=== PATIENT | female | born 1950 | race Caucasian/White ===

== ENCOUNTER 2019-07-29 17:45 | Inpatient (IN) ==
[2019-07-29 18:39] LABS: BASO# 0.02 X1000 (0.0-0.2); BASO% 0.2 % (0.0-0.8); EOS# 0.02 X1000 (0.0-0.7); EOS% 0.2 % (0.0-10.0); HEMOGLOBIN 14.3 g/dL (12.0-16.0); IMM GRAN# 0.04 X1000 (0.0-0.04); IMM GRAN% 0.4 % (0.0-0.5); LYMPH# 0.56 X1000 (1.2-3.4); LYMPH% 5.8 % (20.5-51.1); MCH 28.3 PG (27-31); MCHC 31.8 g/dL (33-37); MCV 89.1 FL (81-99); MONO# 0.72 X1000 (0.11-0.59); MONO% 7.4 % (1.7-9.3); MPV 10.6 FL (7.4-10.4); NEUT# 8.32 X1000 (1.4-6.5); PLT 215 X1000 (130-400); RBC 5.05 XMIL (4.2-5.4); WBC 9.68 X1000 (4.8-10.8)
[2019-07-29 18:45] LABS: BLOOD TYPE ARTERIAL; HCO3-(ACT) 23.9 mmoll (20.0-26.0); METHB 1.3 % (0.0-1.5); O2(CT) 19.1 mL/dL (15.0-23.0); O2HB 90.4 % (95.0-99.0); PCO2(98.6) 38 mmHg (35-45); PO2(98.6) 56 mmHg (60-100); SAMPLE BLOOD; SAO2 93.1 % (95.0-100.0); THB 15.1 g/dL (11.5-17.4)
[2019-07-29 18:49] LABS: MODALITY ROOM AIR
[2019-07-29 18:50] LABS: INR 1.05; PROTIME 14.2 Seconds (11.0-16.0)
[2019-07-29 18:50] LABS: ALLEN TEST YES
[2019-07-29 18:51] LABS: PTT 27.5 Seconds (22.3-41.8)
--- NOTE | 2019-07-29 18:52 | PROVIDER DOCUMENTATION ---
This chart was entered by Theresa Healy Scribe, acting as scribe for Eric Fallon MD. HPI-General Adult - General Chief Complaint: Diarrhea Stated Complaint: flu like sxs Time Seen by Provider: 07/29/19 18:27 Source: patient, RN/MD Allergies/Adverse Reactions: Patient Allergies Allergy/AdvReac Type Severity Reaction Status Date / Time Sulfa (Sulfonamide AdvReac RASH Verified 02/26/15 08:58 Antibiotics) Home Medications: Home Medication List Medication Instructions Recorded Confirmed Last Taken Type Hydrocodone/Acetaminophen [[place] 1 each PO Q4-6H PRN PRN #20 tablet 02/26/15 Unknown Rx 5-325 Tablet] - History of Present Illness -Gen Adult Nature of Presenting Problems: 69 yowf 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 pt sts she became dizzy and weak and fell backward in bathroom and laid flat on floor. rn sts on pt arrival, pt defecated on self and had to be cleaned up. pt son dx w/flu a on thursday and pt sts she began having flu symptoms today including fever and cough. pt c/o low back pain. hx of back sx, arthritis. rx lyrica and percocet. pt had flu shot. denies loc or head injury. Location of Pain/Injury: reports: back Pain Radiation: reports: no radiation Severity: reports: mild Onset/Duration: reports: just prior to arrival Timing: reports: still present Context/Activities at Onset: reports: light activity Modifying Factors: improves with: nothing Associated Symptoms: reports: back/neck pain, cough, diarrhea, fever/chills. denies: syncope Review of Systems - Adult - REVIEW OF SYSTEMS - ADULT Constitutional: reports: see HPI, fever. denies: fatique, night sweats Eyes: reports: no symptoms reported Ears, Nose, Mouth & Throat: reports: no symptoms reported Cardiovascular: reports: no symptoms reported Respiratory: reports: see HPI, cough. denies: dyspnea on exertion, excessive sputum production, hemoptysis Gastrointestinal: reports: see HPI, diarrhea. denies: difficulty swallowing, frequent heartburn, rectal bleeding, vomiting Genitourinary: reports: no symptoms reported Musculoskeletal: reports: see HPI, back pain, muscle weakness. denies: joint pain, joint swelling, muscle aches Integumentary: reports: no symptoms reported Neurological: reports: see HPI, dizziness/vertigo, loss of balance. denies: numbness, syncope, tremors Psychiatric: reports: no symptoms reported Endocrine: reports: no symptoms reported Hematologic/Lymphatic: reports: no symptoms reported Allergic/Immunologic: reports: no symptoms reported All Other Systems: Reviewed and Negative Past History - Adult - PAST MEDICAL HISTORY-ADULT Review of Records: reports: Nursing Assessment Review, Medications Reviewed, Social history reviewed & non-contributory. Major Childhood Illnesses: reports: denies history Cardiovascular: reports: HTN Respiratory: reports: denies history Gastrointestinal: reports: denies history Obstetrical/Gynecological: reports: denies history Genitourinary: reports: denies history Musculoskeletal: reports: denies history Neurological: reports: denies history Psychiatric: reports: denies history Endocrine/Immune: reports: denies history Other Conditions: reports: denies history - PRIOR SURGERIES/PROCEDURES Surgical/Procedure History: reports: BTL, breast, back/neck - IMMUNIZATION STATUS Childhood Immunizations: See Nurse Assessment Flu Vaccine: See Nurse Assessment - FAMILY HISTORY Family History: reviewed, not pertinent - SOCIAL HISTORY Smoking: non-smoker Substance Use: none/never Physical Exam-General - PHYSICAL EXAM-ADULT Initial Vital Signs Reviewed: Yes - CONSTITUTIONAL General Appearance: alert, no apparent distress, obese. negative: lethargic, slow to respond, obtunded - EYES Eyes: PERRL/EOMI - HEAD, EARS, NOSE, MOUTH & THROAT HENMT: normocephalic/atraumatic, moist mucous membranes - NECK Neck: non-tender, full range of motion, supple, normal inspection - RESPIRATORY Respiratory: chest non-tender, lungs clear, normal breath sounds, no pleuratic chest pain, no respiratory distress, no accessory muscle use. negative: respiratory distress, decreased breath sounds, accessory muscle use, wheezing - CARDIOVASCULAR Cardiovascular: normal peripheral pulses, tachycardia. negative: regular rate, rhythm, extra beats, friction rub, irregularly irregular - GASTROINTESTINAL (ABDOMEN) Abdominal Exam: normal bowel sounds, non tender, soft, no organomegaly, no pulsatile mass. negative: abnormal bowel sounds, rebound, tenderness - MUSCULOSKELETAL Back Exam: other (lumbar pain on palp). negative: normal inspection, decreased range of motion Extremity: normal range of motion, no pedal edema, no calf tenderness, normal capillary refill, pelvis stable, tenderness (on palp lateral rt hip). negative: non-tender, normal inspection, abnormal NV exam, deformity, pulse deficit, slow capillary refill, swelling Peripheral Pulses: dorsalis-pedis (R): 2+, dorsalis-pedis (L): 2+ - SKIN Integumentary: normal color, normal turgor, warm/dry - NEUROLOGIC Neurologic: supervisor pumping II-XII nml as tested, grossly normal, no motor/sensory deficits - PSYCHIATRIC Psych/Mental Status: normal mood/affect, normal thought content, normal thought process, oriented x 3 Progress - PLAN OF CARE/RESULTS Progress/Plan/Lab Results: Vital Signs - 8 hr 07/29/19 18:01 Temperature 103.0 F H Pulse Rate 115 H Respiratory Rate 20 Blood Pressure 162/86 O2 Sat by Pulse Oximetry 90 L Orders Category Date Time Status Cardiac Monitoring NOW Care 07/29/19 18:06 Active IV Insertion NOW Care 07/29/19 18:06 Completed NEWS Score >or=5:Order NEWS Bundle S.O. NOW Care 07/29/19 18:05 Active Notify Provider of NEWS Score NOW Care 07/29/19 18:06 Active CHEST-1 VIEW [RAD] Stat Exams 07/29/19 18:06 Ordered ABG [RESP] Routine Lab 07/29/19 18:14 Ordered BLOOD CULTURE [BLDCUL] Stat Lab 07/29/19 18:06 Uncollected CBC WITH DIFF [HEME] Stat Lab 07/29/19 18:06 Ordered CK PROFILE [SP CHEM] Stat Lab 07/29/19 18:06 Ordered COMPREHENSIVE METABOLIC PANEL [CHEM] Stat Lab 07/29/19 18:06 Uncollected Flu [INFLUENZA SCREEN PL] Stat Lab 07/29/19 18:07 Uncollected PROTIME WITH INR [COAG] Stat Lab 07/29/19 18:06 Uncollected PTT [COAG] Stat Lab 07/29/19 18:06 Uncollected TROPONIN T HIGH SENSITIVITY Stat Lab 07/29/19 18:06 Uncollected URINALYSIS W/POSS RFLX CULT [URINALYSIS] Stat Lab 07/29/19 18:06 Uncollected O2 Per Protocol Stat Oth 07/29/19 18:06 Active Result Diagrams: 07/29/19 18:28 07/29/19 18:28 - CONSULTS/PCP/HOSPITALIST Notification #1 *Consult/PCP/Hospitalist*: Dr. Cummins Time Discussed: 18:55 Consult Disposition: Admit - CHANGE OF SHIFT REPORT (ED Provider) 1 Report Given and Care Transferred to:: Dr. Mosquera Time of Transfer: 19:00 Items Pending: XRAY Results Departure - Departure Date of Disposition Decision: 07/29/19 Time of Disposition Decision: 19:08 DIAGNOSIS: Pneumonia Disposition: ADMITTED INPATIENT 09 Certified Medical Emergency: Emergent Condition: Stable - Critical Care Note This patient required my direct & personal management of CC.: No Attestation - Physician/ HAYDE Attestation Patient care was provided by Advanced Practice Provider:: No The physician spent face to face time with patient:: Yes Advanced Practice Provider documentation review:: Supervising physician onsite and consulted in the evaluation and care of this patient. The physician did have a face to face encounter with the patient. This chart was documented by the indicated scribe, (Theresa Healy, [email or web address]) and accurately reflects the services I performed and decisions made by me, Eric Fallon MD, as attested by the provider's signature.
[2019-07-29 18:53] LABS: INFLUENZA A NEGATIVE (NEGATIVE); INFLUENZA B NEGATIVE (NEGATIVE)
[2019-07-29 18:54] LABS: AGAP 14; ALBUMIN 4.2 g/dL (3.5-5.0); ALKALINE PHOSPHATASE 133 U/L (32-104); BUN 13 mg/dL (8-22); CALCIUM 8.8 mg/dL (8.8-10.2); CHLORIDE 102 mmol/L (98-107); CK PROFILE 137 U/L (24-173); COSMO 279; CREATININE 0.9 mg/dL (0.5-0.9); ESTIMATED GFR > 60; GLUCOSE 114 mg/dL (70-104); GOT 30 U/L (10-30); GPT 21 U/L (10-36); POTASSIUM 3.9 mmol/L (3.5-5.1); SODIUM 139 mmol/L (136-145); TCO2 23 mmol/L (25-35); TOTAL PROTEIN 6.7 g/dL (6.3-8.3)
[2019-07-29] MEDS ORDERED: ZOFRAN ODT PO ONE (18:55)
[2019-07-29] MEDS ORDERED: ROCEPHIN 1 GM in NS 50 ML IV ONE (19:00)
--- NOTE | 2019-07-29 19:05 | Diag Imaging Result Doc PS360 ---
EXAM: CHEST-1 VIEW 07/29/2019 HISTORY: sepsis TECHNIQUE: Erect AP portable at 1847 COMMENT: There is opacification of the left lateral costophrenic angle. There are no previous studies. The heart size and pulmonary vascularity are within normal limits. IMPRESSION: Left lower lobe atelectasis versus pneumonia. Electronically signed by Preet Saldivar 07/29/2019 7:03 PM
[2019-07-29 19:10] LABS: BANDS 3 % (0-1); LYMPHS 7 % (21-51); MONO 4 % (1-9); SEGS 86 % (42-75)
[2019-07-29 19:11] LABS: STOMATOCYTES OCCASIONAL
[2019-07-29 19:39] LABS: URINE SOURCE CLEAN CATCH
[2019-07-29 19:43] LABS: BILIRUBIN URINE NEGATIVE (NEGATIVE); BLOOD URINE SMALL (NEGATIVE); COLOR YELLOW; GLUCOSE URINE NEGATIVE (NEGATIVE); KETONE URINE NEGATIVE (NEGATIVE); LEUKOCYTES URINE SMALL (NEGATIVE); NITRITE URINE NEGATIVE (NEGATIVE); PROTEIN URINE 50 mg/dL (NEGATIVE); SP GRAVITY URINE 1.025; TURBIDITY URINE CLEAR (CLEAR); UROBILINOGEN URINE NORMAL (NORMAL)
[2019-07-29 20:31] LABS: URINE WBC 20-40 /HPF (<10)
[2019-07-29 20:32] LABS: UR EPITHELIAL CELLS >10 /HPF (<10); URINE BACTERIA 2+ /HPF; URINE CASTS NONE SEEN; URINE CRYSTALS NONE SEEN; URINE SMALL ROUND CELLS NONE SEEN; URINE YEAST NONE SEEN
[2019-07-29 21:24] LABS: INR 1.01; PROTIME 13.8 Seconds (11.0-16.0)
[2019-07-29 21:26] LABS: BASO# 0.02 X1000 (0.0-0.2); BASO% 0.2 % (0.0-0.8); EOS# 0.01 X1000 (0.0-0.7); EOS% 0.1 % (0.0-10.0); HEMATOCRIT 43.6 % (37.0-47.0); HEMOGLOBIN 13.8 g/dL (12.0-16.0); IMM GRAN# 0.06 X1000 (0.0-0.04); IMM GRAN% 0.5 % (0.0-0.5); LYMPH# 0.89 X1000 (1.2-3.4); LYMPH% 6.9 % (20.5-51.1); MCH 28.2 PG (27-31); MCHC 31.7 g/dL (33-37); MONO# 1.39 X1000 (0.11-0.59); MONO% 10.9 % (1.7-9.3); MPV 10.7 FL (7.4-10.4); NEUT# 10.44 X1000 (1.4-6.5); NEUT% 81.4 % (42.2-75.2); PLT 207 X1000 (130-400); WBC 12.81 X1000 (4.8-10.8)
[2019-07-29 21:52] LABS: HYPOCHROM OCCASIONAL; LYMPHS 10 % (21-51); MONO 6 % (1-9); SEGS 84 % (42-75)
[2019-07-29 21:56] LABS: PTT < 20.0 Seconds (22.3-41.8)
[2019-07-29 22:15] LABS: AGAP 12; ALBUMIN 3.8 g/dL (3.5-5.0); ALKALINE PHOSPHATASE 123 U/L (32-104); BUN 12 mg/dL (8-22); CALCIUM 8.8 mg/dL (8.8-10.2); CHLORIDE 102 mmol/L (98-107); COSMO 277; CREATININE 0.8 mg/dL (0.5-0.9); ESTIMATED GFR > 60; GLUCOSE 126 mg/dL (70-104); GOT 31 U/L (10-30); GPT 20 U/L (10-36); POTASSIUM 3.9 mmol/L (3.5-5.1); SODIUM 138 mmol/L (136-145); TCO2 24 mmol/L (25-35); TOTAL PROTEIN 6.2 g/dL (6.3-8.3)
[2019-07-29 22:19] LABS: CK PROFILE 429 U/L (24-173)
[2019-07-29 22:41] LABS: CK INDEX 1.3 (0.0-2.5); CK-MB 5.74 ng/mL (0.0-5.0)
[2019-07-29] MEDS ORDERED: PERCOCET-10 PO PRN (22:55)
[2019-07-29] MEDS: PERCOCET-10 PO PRN (23:33)
[2019-07-30] MEDS: PERCOCET-10 PO PRN ×2 (08:25→19:05)
[2019-07-30 11:32] LABS: HEMATOCRIT 44.4 % (37.0-47.0); HEMOGLOBIN 13.9 g/dL (12.0-16.0); MCH 27.9 PG (27-31); MCHC 31.3 g/dL (33-37); MCV 89.2 FL (81-99); MPV 10.4 FL (7.4-10.4); RBC 4.98 XMIL (4.2-5.4); RDW 13.3 % (11.5-14.5); WBC 12.35 X1000 (4.8-10.8)
[2019-07-30] MEDS: ZITHROMAX PO SCH (11:39)
[2019-07-30 11:52] LABS: CALCIUM 8.9 mg/dL (8.8-10.2); POTASSIUM 3.9 mmol/L (3.5-5.1)
--- NOTE | 2019-07-30 13:13 | HISTORY AND PHYSICAL ---
CHIEF COMPLAINT: Generalized weakness and fall. HISTORY OF PRESENT ILLNESS: This is a 69-year-old female with a history of chronic back pain on chronic opiates, who presents to the emergency room after having an onset of dizziness, weakness, and falling backwards in the bathroom floor. She did defecate on herself during this time, although she had gone to the bathroom to have a bowel movement. She denied any loss of consciousness. She did state that through the day she has developed fever and cough. On arrival to the emergency room, she had a temperature of 103 degrees with O2 saturations at 90% on room air. Of note, her son was diagnosed with the flu and is currently on Tamiflu. The patient states that she did have a flu shot. PAST MEDICAL HISTORY: Chronic pain on chronic opiates, hypertension. PAST SURGICAL HISTORY: Breast biopsy, tubal ligation, back surgery. SOCIAL HISTORY: She denies alcohol, tobacco, or illicit drug use. ALLERGIES: Sulfa, which causes a rash. HOME MEDICATIONS: Meloxicam, oxycodone, and Lyrica. REVIEW OF SYSTEMS: Discussed with the patient with pertinent positives stated in the HPI. She denied any syncope, chest pain or palpitations, any shortness of breath, PND, orthopnea, any nausea, vomiting, constipation, any black or bloody vomitus or stools, hematuria, dysuria frequency, urgency. PHYSICAL EXAMINATION: GENERAL: This is a 69-year-old female, who is lying on the bed on the Med/Surg floor in no distress. VITAL SIGNS: Blood pressure is 152/62 with heart rate of 70, respirations are 20, temperature is 97.7 degrees oral with O2 saturations 96% on 2 L nasal cannula and 94% on room air. HEENT: Head is normocephalic, atraumatic. Mucous membranes are moist. Pupils are equal, round, react to light. EOMs are intact. NECK: Supple with trachea midline. CARDIOVASCULAR: Regular rate and rhythm. S1 and S2 appreciated. She has no lower extremity edema. She denies any calf tenderness. Peripheral pulses are palpable x4 extremities. PULMONARY: Breath sounds are clear with no increased work of breathing noted. Chest rises falls symmetric with respiration. Chest wall is nontender to palpation. She has no increased work of breathing noted. GASTROINTESTINAL: Abdomen is soft, nontender, nondistended with bowel sounds in all 4 quadrants. NEUROLOGIC: She is alert and oriented x3. SKIN: Warm and dry. LABORATORY: WBC is 12.8 with hemoglobin 13.8, hematocrit 43.6, platelets are 207,000. INR is 1.01. Sodium 138, potassium 3.9, BUN 12, creatinine 0.8, glucose of 126. Total CPK is 429 with CK-MB 5.74. Troponins are 10 and 17. Lactate is 1.4, 1.9, 1.5. Blood cultures and urine culture are pending. Chest x-ray revealed left lower lobe pneumonia. ASSESSMENT AND PLAN: 1. Left lower lobe pneumonia. 2. Sepsis 3. Dizziness. 4. Fever. 5. Leukocytosis. 6. Rhabdomyolysis. 7. Fall. 8. Chronic pain on chronic opiates. PLAN: 1. Oxygen supplementation per protocol. 2. Incentive spirometer every 4 hours. 3. Up in a chair with meals and prn. 4. Antibiotics Rocephin and azithromycin. Further antibiotics will be culture- driven. 5. Check CBC, BMP, total CPK now and in the morning. 6. IV hydration. 7. Continue her oxycodone as at home. 8. For DVT prophylaxis is SCDs as she did fall prior to coming to the emergency room, and GI prophylaxis, PPI. Further treatments pending hospital course. Dictated by LEONID Wen for Darian Cummins MD cc: LEONID Wen MD [facility]
--- NOTE | 2019-07-30 14:42 | HISTORY AND PHYSICAL ---
ADDENDUM: Patient seen and examined by myself. Full note dictated and discussed with nurse practitioner. Patient presented to the hospital with flu-like symptoms. She was lightheaded, dizzy. Notes that she fell and laid on the floor all evening. Her son does have the flu. Currently, she is awake, alert. She is much improved. She was given fluids in the ER. She had a temperature of 103 degrees upon presenting to the ER. White count actually is still normal. Chest x-ray appears to possibly have an early pneumonia. We are going to admit her to the hospital, treat her for sepsis with antibiotics, fluids, and will follow. cc: Darian Cummins MD
[2019-07-30] MEDS ORDERED: ROCEPHIN 1 GM in NS 50 ML IV SCH (18:00)
[2019-07-30] MEDS: NS 1,000 ML IV SCH (18:57)
[2019-07-30] MEDS: ZOFRAN IV PRN (18:57)
[2019-07-30] MEDS: LYRICA PO SCH (21:17)
[2019-07-30] MEDS: IMODIUM PO PRN (21:18)
[2019-07-31] MEDS: NS 1,000 ML IV SCH (04:25)
[2019-07-31] MEDS: IMODIUM PO PRN (04:26)
[2019-07-31] MEDS: PERCOCET-10 PO PRN (04:26)
[2019-07-31] MEDS: ZOFRAN IV PRN (04:44)
[2019-07-31 06:22] LABS: HEMATOCRIT 40.8 % (37.0-47.0); HEMOGLOBIN 12.5 g/dL (12.0-16.0); MCH 27.8 PG (27-31); MCHC 30.6 g/dL (33-37); MCV 90.7 FL (81-99); MPV 10.8 FL (7.4-10.4); RBC 4.5 XMIL (4.2-5.4); RDW 13.3 % (11.5-14.5); WBC 7.73 X1000 (4.8-10.8)
[2019-07-31 06:36] LABS: AGAP 12; BUN 20 mg/dL (8-22); CALCIUM 7.9 mg/dL (8.8-10.2); CHLORIDE 108 mmol/L (98-107); CK TOTAL 669 U/L (24-173); COSMO 291; CREATININE 0.8 mg/dL (0.5-0.9); ESTIMATED GFR > 60; GLUCOSE 100 mg/dL (70-104); POTASSIUM 3.9 mmol/L (3.5-5.1); SODIUM 145 mmol/L (136-145); TCO2 25 mmol/L (25-35)
[2019-07-31] MEDS ORDERED: PRILOSEC PO SCH (07:00)
[2019-07-31 07:57] VITALS: BP 114/47
[2019-07-31] MEDS: LYRICA PO SCH (08:46)
[2019-07-31] MEDS: ZITHROMAX PO SCH (08:47)
--- NOTE | 2019-07-31 15:32 | DISCHARGE SUMMARY ---
ADMISSION DATE: 07/30/2019 DISCHARGE DATE: 07/31/2019 DIAGNOSES: 1. Left lower lobe pneumonia. 2. Sepsis. Resolved. 3. Dizziness, resolved. 4. Fever, resolved. 5. Leukocytosis resolved. 6. Rhabdomyolysis, improving. 7. Diarrhea, improving. 8. Chronic pain on chronic opiates. 9. Fall. DIAGNOSTICS: Chest x-ray revealed left lower lobe atelectasis versus pneumonia. MICROBIOLOGY: C difficile toxin was negative. Urine culture revealed no pathogenic growth. Blood cultures x2 revealed no growth after 48 hours. HOSPITAL COURSE: Ms. Warner presented to the emergency room after falling and becoming incontinent of stool. She stated she went to the bathroom to have a bowel movement. She became dizzy, weak, fell backwards on the floor, actually defecated on herself. She had no loss of consciousness. She is found have a temperature of 103 degrees with O2 saturations of 90% on EMS arrival. She ultimately was found to have pneumonia. She was negative for flu. She did have diarrhea. She was negative for C diff. Antibiotic coverage of Rocephin and azithromycin. She did have a WBC that peaked at 12.8, today at 7.7. Her CPK peaked at 823 is down to 669. She has been up walking in the [place] walking in the bathroom. She has had no further dizziness. Room air saturations have been 94 to 97 percent, and thankfully she is ready for discharge. DISCHARGE PHYSICAL EXAMINATION: Blood pressure is 114/47, with a heart rate of 66, respirations 18, temperature is 98 degrees, room air saturations 96 to 97 percent. Cardiovascular regular rate and rhythm. S1 and S2 appreciated. No lower extremity edema. Peripheral pulses are palpable x4 extremities. Pulmonary: Breath sounds clear with no increased work of breathing noted. Chest rise falls symmetric respiration. Chest wall is nontender to palpation. Gastrointestinal: Abdomen is soft, nontender, nondistended with bowel sounds in all 4 quadrants. Neurologic she is alert oriented x3. DISCHARGE MEDICATIONS: 1. Lyrica 225 mg p.o. b.i.d. 2. Oxycodone 10/325 4 times a day. 3. Meloxicam 15 mg p.o. daily. 4. Omnicef 300 mg p.o. b.i.d. x5 days. 5. Azithromycin 250 mg p.o. daily x4 days. FOLLOWUP: Dr. Yobany Hernandez. She needs to call Thursday to schedule appointment to be seen within the next week or 2. She has been instructed to return to the emergency room or call to be seen sooner for any dizziness, syncope, temperature greater than 101, shortness of breath, any chest pain or palpitations, any nausea, vomiting, increasing diarrhea, constipation, any black or bloody vomitus or stools or for any questions or concerns that she may have. DISPOSITION: She is being discharged home in stable condition with her son. TIME SPENT: This is a greater than 30 minute discharge. Dictated by LEONID Wen for Darian Cummins MD cc: LEONID Wen MD [facility]
--- NOTE | 2019-07-31 20:57 | DISCHARGE SUMMARY ---
ADMISSION DATE: 07/30/2019 DISCHARGE DATE: 07/31/2019 ADDENDUM: Patient seen and examined by myself. Full note dictated and discussed with nurse practitioner. Patient presented to the hospital with flu-like symptoms, was flu negative; although, her son did have the flu. She was diagnosed with pneumonia. On discharge, she is awake, alert. She is pleasant. She is in no distress. She is on no oxygen. She is ambulating without any difficulty and therefore will be discharged home. We will continue antibiotics at home. cc: Darian Cummins MD
== END 2019-07-31 12:34 | disposition home or self-care (01) | DRG 871 ==
LOC: P.ED 17:45 → P.MEDSURG 17:45
PROVIDERS: ATTEND Family Medicine